=== PATIENT | male | born 1935 | race Caucasian/White ===

== ENCOUNTER 2017-09-16 07:14 | Day surgery (SDC) | payer MEDICARE, OTHER, SELFPAY | END 2017-09-16 12:01 | disposition home or self-care (01) | PROVIDERS: Family Provider Family Medicine; Visit Provider Internal Medicine | DX: I49.5 Sick sinus syndrome (principal); R00.1 Bradycardia, unspecified; Z45.02 Encounter for adjustment and management of automatic implantable cardiac defibrillator | CPT/HCPCS: 33208; 71010; 96374; 96375; C1785; C1898 ==

== ENCOUNTER → 2017-10-21 08:38 | Outpatient (POV) | payer MEDICARE, OTHER, SELFPAY | PROVIDERS: Family Provider Family Medicine; PCP Family Medicine; Visit Provider Physician Assistant | DX: Z00.00 Encounter for general adult medical examination without abnormal findings (principal) ==

== ENCOUNTER → 2017-12-23 10:08 | Outpatient (POV) | payer MEDICARE, OTHER, SELFPAY | PROVIDERS: Visit Provider Physician Assistant | DX: Z00.00 Encounter for general adult medical examination without abnormal findings (principal) ==

== ENCOUNTER → 2018-01-24 09:42 | Outpatient (CLI) | payer MEDICARE, OTHER, SELFPAY ==
--- NOTE | 2018-01-24 09:49 | XR_ITS ---
XR chest 2V COMPARISON: PA and lateral chest 24 January 1998 HISTORY: Known COPD TECHNIQUE: PA and lateral chest FINDINGS: The lung boston are well expanded and appear clear of infiltrate. Cardiac size is normal and the vascularity is normal and is no pleural fluid. There is a cardiac pacemaker with dual chamber electrodes both in good position. There are calcified right hilar nodes and a calcite granuloma right midlung field. IMPRESSION: Old granulomatous disease, no acute chest pathology noted
== END ==
PROVIDERS: PCP Nurse Practitioner Family; Visit Provider Nurse Practitioner Family
DX: J18.1 Lobar pneumonia, unspecified organism (principal); J44.0 Chronic obstructive pulmonary disease with (acute) lower respiratory infection
CPT/HCPCS: 71046

== ENCOUNTER → 2018-07-08 14:37 | Outpatient (POV) | payer MEDICARE, OTHER, SELFPAY | PROVIDERS: Visit Provider Dermatology | DX: Z00.00 Encounter for general adult medical examination without abnormal findings (principal) ==

== ENCOUNTER → 2018-07-29 12:43 | Outpatient (POV) | payer MEDICARE, OTHER, SELFPAY | PROVIDERS: Family Provider Family Medicine; PCP Family Medicine; Visit Provider Internal Medicine | DX: Z00.00 Encounter for general adult medical examination without abnormal findings (principal) ==

== ENCOUNTER → 2018-08-05 12:50 | Outpatient (POV) | payer MEDICARE, OTHER, SELFPAY | PROVIDERS: Visit Provider Dermatology | DX: Z00.00 Encounter for general adult medical examination without abnormal findings (principal) ==

== ENCOUNTER → 2018-08-27 08:35 | Outpatient (CLI) | payer MEDICARE, OTHER, SELFPAY ==
--- NOTE | 2018-08-27 08:36 | CI_ITS ---
Cerebrovascular Exam Indications: Follow-up carotid 433.10. 780.2 Syncope and collapse. IMPRESSIONS 1. Theright vertebral artery is patent with normal antegrade flow. 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 2. Study suggests less than 20% stenosis involving the right internal carotid artery. No change from the study of 30-Mar-2014. 3. Study suggests less than 20% stenosis involving the left internal carotid artery. No change from the study of 30-Mar-2014. Carotid duplex study. Complete study and Doppler flow study including spectral analysis, color and arriaza scale imaging. Height: Height: 167.6cm. Height: 66in. Weight: Weight: 83.9kg. Weight: 184.6lb. Body mass index: BMI: 29.9kg/m^2. Body surface area: BSA: 2m^2. Location: Vascular laboratory. Patient status: Outpatient. Tables: Arterial flow: + +--------+--------+ Location V sys V ed + +--------+--------+ Right CCA - proximal 77cm/s 14.9cm/s + +--------+--------+ Right CCA - distal 80.1cm/s 17.3cm/s + +--------+--------+ Right ECA 107cm/s 11.8cm/s + +--------+--------+ Right ICA - proximal 54.2cm/s 17.3cm/s + +--------+--------+ Right ICA - mid 66cm/s 19.6cm/s + +--------+--------+ Right ICA - distal 74.6cm/s 22cm/s + +--------+--------+ Right vertebral 51.9cm/s 11cm/s + +--------+--------+ Left CCA - proximal 76.2cm/s 13.4cm/s + +--------+--------+ Left CCA - distal 73.9cm/s 16.5cm/s + +--------+--------+ Left ECA 66.7cm/s 12.1cm/s + +--------+--------+ Left ICA - proximal 51.1cm/s 19.6cm/s + +--------+--------+ Left ICA - mid 58.1cm/s 16.5cm/s + +--------+--------+ Left ICA - distal 82.5cm/s 29.9cm/s + +--------+--------+ Velocity ratios: + + + + + + Right, V sys Right, V ed Left, V sys Left, V ed + + + + + + Max ICA/dist CCA 0.93 1.27 1.12 1.81 + + + + + + (Report amended ) Electronically signed by: Deyvi Wade [id number]
--- NOTE | 2018-08-27 09:39 | CT_ITS ---
CT chest wo con HISTORY: Follow-up pulmonary nodule, pulmonary nodule ITS.REASON: LUNG NODULE ORDERING PHYSICIAN: Robbi Magaña MD PATIENT AGE: 82 years COMPARISON: 12/18/2016 Technique: Axial images obtained with sagittal and coronal reformats. All CT scans at the facility use one or more dose reduction, viz: automated exposure control, ma/kV adjustment per patient size (including targeted exams where dose is matched to indication, i.e. head), or iterative reconstruction technique. FINDINGS: No mediastinal or hilar mass or adenopathy. There are a few scattered small mediastinal lymph nodes appear stable. There are coronary artery calcifications. Artifact is present from cardiac pacemaker device from the left subclavian approach. Normal heart size. No evidence of pericardial effusion. There are scattered fibrotic changes. There is a calcified granuloma in the right upper lobe posteriorly. A stable 3 mm nodular opacity is present in the right apex laterally. There is hyperinflation with coarsening of the bronchovascular markings and mild bronchial thickening Increasing consolidation is present within the lingula laterally and superiorly. This area has a triangular shape measuring 2.8 x 3 cm previously 1.8 x 2 cm. A post obstructive process is a consideration. No central obstructing lesions are however evident. Bronchoscopy may be of further value. Calcified gallstone is noted. There is mild ectasia of the upper abdominal aorta at 2.6 cm IMPRESSION: 1. Increasing consolidation/volume loss of the lingula. Bronchoscopy may be of further value. 2. Hyperinflation with coarsening of the bronchovascular markings. Does patient have a history of smoking?
[2018-08-27 10:00] VITALS: PULSE 68; PULSE 70
[2018-08-27 10:40] VITALS: BP 130/75; BP 150/78; PULSE 70; PULSE 98; RESP 18; RESP 24; O2SAT 93; O2SAT 95
== END ==
PROVIDERS: PCP Family Medicine; Referring Provider Internal Medicine; Visit Provider Internal Medicine
DX: I65.23 Occlusion and stenosis of bilateral carotid arteries (principal); J45.909 Unspecified asthma, uncomplicated; R06.02 Shortness of breath; R91.1 Solitary pulmonary nodule
CPT/HCPCS: 71250; 93880; 94060; 94618; 94640; 94726; 94729

== ENCOUNTER → 2018-11-04 09:32 | Outpatient (POV) | payer MEDICARE, OTHER, SELFPAY | PROVIDERS: Visit Provider Internal Medicine | DX: Z00.00 Encounter for general adult medical examination without abnormal findings (principal) ==

== ENCOUNTER → 2018-12-02 15:28 | Outpatient (POV) | payer MEDICARE, OTHER, SELFPAY | PROVIDERS: Visit Provider Dermatology | DX: Z00.00 Encounter for general adult medical examination without abnormal findings (principal) ==

== ENCOUNTER → 2019-02-02 18:42 | Outpatient (CLI) | payer MEDICARE, OTHER, SELFPAY | PROVIDERS: Visit Provider Podiatrist | DX: L60.0 Ingrowing nail (principal) | CPT/HCPCS: 87102; 87206; 87220 ==

== ENCOUNTER → 2019-04-28 09:04 | Outpatient (POV) | payer MEDICARE, OTHER, SELFPAY | PROVIDERS: Visit Provider Internal Medicine | DX: Z00.00 Encounter for general adult medical examination without abnormal findings (principal) ==

== ENCOUNTER → 2019-07-21 14:41 | Outpatient (POV) | payer MEDICARE, OTHER, SELFPAY | PROVIDERS: Visit Provider Dermatology | DX: Z00.00 Encounter for general adult medical examination without abnormal findings (principal) ==

== ENCOUNTER → 2020-03-22 12:50 | Outpatient (POV) | payer MEDICARE, OTHER, SELFPAY | PROVIDERS: PCP Family Medicine; Visit Provider Physician Assistant | DX: Z00.00 Encounter for general adult medical examination without abnormal findings (principal) ==

== ENCOUNTER → 2020-05-19 07:47 | Outpatient (CLI) | payer MEDICARE, OTHER, SELFPAY ==
[2020-05-19 09:06] LABS: Coronavirus 19 IgG Antibody Negative (Negative); Coronavirus 19 IgM Antibody Negative (Negative)
== END ==
PROVIDERS: Visit Provider Internal Medicine Gastroenterology
DX: Z01.818 Encounter for other preprocedural examination (principal); Z12.11 Encounter for screening for malignant neoplasm of colon
CPT/HCPCS: 36415; 86328

== ENCOUNTER 2020-05-20 07:48 | Day surgery (SDC) | payer MEDICARE, OTHER, SELFPAY ==
[2020-05-12 13:24] VITALS: BMI 26.6
[2020-05-20] VITALS (7 sets, daily range): BP systolic 89–195; BP diastolic 52–91; PULSE 70–85; RESP 16–18; TEMP 36.5–36.6; O2SAT 91–97
--- NOTE | 2020-05-20 09:25 | HMH.PROC ---
[facility] Procedure Note Procedure Note:: Colonoscopy Procedure Report: Colonoscopy with cold snare polypectomy Endoscopist: Valentin Andres II, MD Referring physician: Joelle La M.D. Date of Procedure: May 20, 2020 Equipment: Olympus 180 variable stiffness pediatric colonoscope Sedation: MAC sedation Indication: Mr. Pop is an 84-year-old gentleman with a personal history of adenomatous colon polyps and a family history of colon cancer. His mother had colon cancer at the age of 75. He had a colonoscopy in 2010 (Dr. Josef Carrillo) and had a single polyp removed. His last colonoscopy with mo in January 2017 revealed 7 colon polyps (tubular adenomas x7) which were removed. The patient also had extensive left-sided diverticulosis. He has been taking MiraLAX plus fiber/psyllium daily which helps. He does get some occasional right lower quadrant abdominal discomfort. He reports no rectal bleeding, change in bowel habits or weight loss. Procedure: Prior to the procedure, a history and physical exam was performed, and patient's medications and allergies were reviewed. The risks, benefits and alternatives of the sedation and procedure were discussed with the patient. All questions were answered and informed consent was obtained. The patient was brought to the procedure room. Patient identification and proposed procedure were verified by the physician and the nurse. The patient was placed in a left lateral decubitus position and the scope was passed under direct vision. Throughout the procedure, the patient's blood pressure, pulse, and oxygen saturations were monitored continuously. The colonoscopy was accomplished without difficulty. The patient tolerated the procedure well. Findings: On digital rectal examination there was normal rectal tone. There were no external hemorrhoids. The colonoscope was introduced through the anal canal to the rectum and advanced to the cecum. The ileocecal valve and appendiceal orifice were identified. The scope was advanced a short distance into the ileum which appeared grossly normal. The scope was then withdrawn into the colon. The cecum, ascending and transverse colon and mucosa were grossly normal. There were 3 diminutive polyps in the descending colon (2, 3 and 3 mm) and one polyp in the sigmoid colon (4 mm) which were removed via cold snare polypectomy. There were extensive scattered diverticuli throughout the descending and sigmoid colon (LEFT colon). The rectum itself was normal. Upon retroflexion within the rectum there were grade 1-2 internal hemorrhoids. The preparation was excellent throughout with [place] Preparation Score of 9. The cecal time was 12 minutes. Impression: 1. Diminutive colonic polyps x4 2. Extensive left-sided diverticulosis 3. Grade 1-2 internal hemorrhoids Plan: The patient will not require any further preventive colonoscopy. I will discuss the findings with patient and family. I would encourage continuation of the fiber bowel regimen (MiraLAX plus psyllium fiber) on a long-term daily maintenance basis.
--- NOTE | 2020-05-20 09:43 | HMH.ANESCL ---
[facility] Anesthesia Checklist - Structural Data Admitted From: Home Planned Operative Procedure/s: colonoscopy Consent for Planned Operative Procedure(s) Verified: Yes - Airway Assessment C-Spine Mobility Assessed: Yes TMJ Mobility Assessed: Yes Dentition: Dentures-good fit - Neurological Assessment Level of Consciousness: Awake, Alert, Appropriate - Anesthesia Plan Anesthesia Risk discussed: Yes Anesthesia Plan: Verified ASA Class: III Anesthesia Type: MAC [facility] History I have reviewed the patient's past medical history: Yes Medical History: Reports:: Asthma, Cancer (skin), Coronary Artery Disease, Gastroesophageal Reflux Disease(GERD), Hiatal Hernia, Home Oxygen, Hyperlipidemia, Hypertension, Lung Disease Denies:: Diabetes Mellitus Type 1, Diabetes Mellitus Type 2, Internal Pacemaker, MRSA, Seizures *Have you ever received a pneumonia vaccine?: Yes *Have you received a flu vaccine this season?: Yes Other Medical History: Reports: Arthritis, Hypothyroidism, Thyroid Disease Anesthesia experience/problems:: none Laterality Cases: Left: Arthroscopy Knee Other Surgeries: Yes: Cardiac Catheterization, Cardiac Surgery, Colonoscopy, Hernia Repair, Other ([facility]-no stents, Eye Lid Sx). No: Pacemaker Amputation: No Fractures: No - *Social History Last grade of school completed: High school graduate Smoking Status: Former smoker Tobacco Type: cigarettes # Packs/Day (cigarettes): 1 Alcohol Intake: never Alcohol Intake Frequency:: other Substance Use Type: denies use *Occupational Status:: retired Housing: house Household Members: spouse *Travel in the last 8 weeks: None Family Hx:: Coronary Artery Disease, Heart Attack
== END 2020-05-20 10:50 | disposition home or self-care (01) ==
LOC: OUTP 07:50
PROVIDERS: PCP Family Medicine; Visit Provider Internal Medicine Gastroenterology
PROC: 0DJD8ZZ Inspection of Lower Intestinal Tract, Via Natural or Artificial Opening Endoscopic (ICD-10-PCS; CPT 45378; principal; 2020-05-20 09:00)
DX: Z86.010 Personal history of colon polyps (principal); Z80.0 Family history of malignant neoplasm of digestive organs; Z87.19 Personal history of other diseases of the digestive system; Z12.11 Encounter for screening for malignant neoplasm of colon; K63.5 Polyp of colon; K57.30 Diverticulosis of large intestine without perforation or abscess without bleeding; K64.0 First degree hemorrhoids; J45.909 Unspecified asthma, uncomplicated; K21.9 Gastro-esophageal reflux disease without esophagitis; Z99.81 Dependence on supplemental oxygen; E78.5 Hyperlipidemia, unspecified; I10 Essential (primary) hypertension; Z85.828 Personal history of other malignant neoplasm of skin
CPT/HCPCS: 45385; 88305

== ENCOUNTER → 2020-05-25 12:47 | Outpatient (CLI) | payer MEDICARE, OTHER, SELFPAY ==
[2020-05-25 13:30] VITALS: PULSE 78; PULSE 80
--- NOTE | 2020-05-25 13:55 | CT_ITS ---
PROCEDURE: CT CHEST WO CON CLINICAL INDICATION: Pulmonary NOdule PULMINARY NODULE SOA COMPARISON: CT CHESTWO CT chest wo con from 08/27/[address] CHEST WO CONTRAST from 10/24/2018 TECHNIQUE: Axial images obtained with sagittal and coronal reformats. All CT scans at the facility use one or more dose reduction, viz: automated exposure control, ma/kV adjustment per patient size (including targeted exams where dose is matched to indication, i.e. head), or iterative reconstruction technique. FINDINGS: HEART AND MEDIASTINAL STRUCTURES: Cardiac pacemaker device is present from the left subclavian approach. No mediastinal or hilar mass or adenopathy. Calcified nodes are present in the right hilum. There are coronary artery calcifications and aortic valve calcifications. LUNGS AND PLEURAL SPACES: COPD. Old granulomatous disease with scattered areas of scarring. Calcified granuloma is present in the right upper lobe. Small pneumatocele noted in the right lung base posteriorly unchanged. In the lingular segment of the left upper lobe there is a solid-appearing soft tissue mass which measures 2.4 by 1.4 by 2.2 cm. Overall, the nodule appears slightly more prominent compared to 10/24/2018 and there is some increasing spiculation compared to the exam of 10/24/2018. Bronchoscopy is suggested for further evaluation. There is chronic volume loss in the lingula. No new nodules are evident. BONY STRUCTURES: No acute bony abnormalities apparent. UPPER ABDOMEN: Unremarkable. ADDITIONAL FINDINGS: No other significant abnormalities. IMPRESSION: Suspicious nodule within the lingula at 2.4 x 1.4 cm which appears slightly larger and slightly more voluminous compared to 10/24/2018 with some spiculation along its borders. Neoplasm is considered and bronchoscopy is suggested for further evaluation. Dictated by: Deyvi Wade MD 05/26/2020 11:35 Deyvi Wade MD in [place] 05/26/2020 11:35
== END ==
PROVIDERS: PCP Family Medicine; Visit Provider Internal Medicine Pulmonary Disease
DX: R91.1 Solitary pulmonary nodule (principal)
CPT/HCPCS: 71250; 94060; 94640; 94726; 94729

== ENCOUNTER → 2021-01-31 14:28 | Outpatient (POV) | payer MEDICARE, OTHER, SELFPAY | PROVIDERS: Visit Provider Dermatology | DX: Z00.00 Encounter for general adult medical examination without abnormal findings (principal) ==

== ENCOUNTER → 2021-02-01 09:57 | Outpatient (CLI) | payer MEDICARE, OTHER, SELFPAY ==
--- NOTE | 2021-02-01 10:02 | CA_ITS ---
APPROVED REPORT EXAM: Comprehensive 2D, Doppler, and color-flow Echocardiogram Manager Quality Systems: Vee Pulliam RVT Ht: 5 ft 6 in Wt: 193lbs BSA: 1.97 BP: 152/84 mmHg Indications: SOA,LUNG CA RECEIVING RADIATION,CAD,PACER,GERD,HOME O2,HLD,HTN 2D Dimensions LVOT 1.96 cm (M/F) 1.5-2.5 LA Volume 25.90 mL LA Volume Index 13.14 mL/m2 (M/F) 16-34 M-Mode Dimensions RVDd 2.82 cm (0.9-2.6) LA Diam 3.83 cm (1.9-4.0) LVDd 4.65 cm (3.5-5.7) Ao Diam 3.54 cm (2.0-3.7) LVDs 2.93 cm (3.5-5.7) IVSd 0.85 cm (0.6-1.1) PWd 0.66 cm (0.6-1.1) EF (Teich) 66.90% FS 37.00% EDV (Teich) 99.80 mL TAPSE 1.66 (<1.7) ESV (Teich) 33.00 mL LV Diastology E Decel Time 273.00 (160-240 msec) E/A Ratio 0.6 MED E' 5.50 (< 7 cm/sec) E'/MED E' Ratio 11.29 (>14) LAT E' 6.50 (<10 cm/sec) E/LAT E' Ratio 9.55 (>14) Aortic Valve AI PHT 725.00 ms Mitral Valve MV E Max Shon. 62.00 (40-130 cm/s) MV A Velocity 104.00 (40-130 cm/s) E/A Ratio 0.60 MV Decel. Time 273.00 (160-240 ms) MV PHT 80.00 ms Pulmonary Valve PV Peak Velocity 84.00 (50-150 cm/s) Tricuspid Valve TR P. Velocity 230.00 cm/s RAP Estimate 10.00 mmHg RVSP 31.20 mmHg Left Ventricle Left atrium is mildly enlarged, left ventricle is normal size, mild concentric left ventricular hypertrophy, visually estimated ejection fraction 55% with no regional wall motion abnormality, grade 1 diastolic dysfunction seen without tissue Doppler evidence of raise left atrial pressure. Right Ventricle Right atrium and right ventricle are mildly enlarged with normal contractility, pacemaker leads in the right atrium and right ventricle. Aortic Valve Aortic valve is minimally thickened and fibrosed, there is no aortic stenosis or aortic insufficiency. Mitral Valve Mitral valve is grossly normal, there is trace mitral regurgitation. Tricuspid Valve Tricuspid grossly normal, there is trace tricuspid regurgitation, tricuspid regurgitation jet velocity is inadequate for calculation of the right ventricular systolic pressure. Pulmonic Valve Pulmonic valve is poorly visualized. Great Vessels Aortic root is normal size. Pericardium No significant pericardial effusion noted. Conclusion 1. Mild biatrial enlargement, normal left ventricular size, mild concentric left ventricular hypertrophy, visually estimated ejection fraction 55% with no regional wall motion abnormality, grade 1 diastolic dysfunction seen without tissue Doppler evidence of raise left atrial pressure. 2. Mildly enlarged right ventricle with normal contractility. 3. Trace mitral and tricuspid regurgitation. 4. No significant pericardial effusion noted. Electronically signed by : Duke Doe, 02/02/2021 15:02:03
== END ==
PROVIDERS: PCP Family Medicine; Visit Provider Nurse Practitioner Family
DX: E78.2 Mixed hyperlipidemia (principal); I10 Essential (primary) hypertension; I25.10 Atherosclerotic heart disease of native coronary artery without angina pectoris; R06.00 Dyspnea, unspecified; Z95.0 Presence of cardiac pacemaker
CPT/HCPCS: 93306

== ENCOUNTER → 2021-06-06 10:12 | Outpatient (POV) | payer MEDICARE, OTHER, SELFPAY | PROVIDERS: Visit Provider Dermatology | DX: Z00.00 Encounter for general adult medical examination without abnormal findings (principal) ==

== ENCOUNTER 2021-12-19 12:46 | Emergency (ER) | payer MEDICARE, OTHER, SELFPAY ==
[2021-12-19] VITALS (10 sets, daily range): BP systolic 104–178; BP diastolic 64–84; PULSE 70–77; RESP 16–22; TEMP 36.7–36.8; O2SAT 93–100; BMI 31.4
--- NOTE | 2021-12-19 12:36 | ECG_ITS ---
APPROVED REPORT Exam: Resting ECG HR:69 bpm ECG Measurements Heart Rate 69 AXES AK 208 P 161 QRSd 84 QRS 24 QT 379 T 87 QTc 399 Conclusion ELECTRONIC ATRIAL PACEMAKER ABNORMAL RHYTHM ECG UNCONFIRMED REPORT Electronically signed by : Brandon Munoz MD 12/20/2021 18:03:27
--- NOTE | 2021-12-19 12:47 | XR_ITS ---
FINAL REPORT CLINICAL HISTORY: chest pain, sob, syncope FINDINGS: Two views of the chest were obtained. A left-sided pacemaker is present. The heart size and pulmonary vascularity are within normal limits. The mediastinum is normal. There is left lung base opacity favored to represent atelectasis over pneumonia. There is no pneumothorax. The bony thorax is intact. IMPRESSION: Left lung base opacity, favor atelectasis over pneumonia. Reviewed, Interpreted and Dictated by Alessandro Sumner III, MD Transcribed by Becki Estes Authenticated by Alessandro Sumner III, MD on 12/19/2021 01:41:07 PM [facility]
--- NOTE | 2021-12-19 12:56 | HMH.EDCP ---
ED Disposition Clinical Impression: Chest discomfort, Hypocalcemia, Hypomagnesemia, Renal insufficiency, Hyperkalemia Disposition: Home, Self-Care Condition on Discharge: Good Instructions: DI for Atypical Chest Pain, DI for Hypocalcemia, DI for Hypomagnesemia, Kidney Failure, Hyperkalemia Additional Instructions: follow up pcp 1-2 days and cardiology appt return here for worsening conditoon Referrals: Genesis La MD [Primary Care Provider] - - Critical Care Critical Care Time: No Attestation: On 12/19/21, the high probability of a clinically significant, sudden or life threatening deterioration of the following system(s) required my full and direct attention, intervention and personal management. The time I documented below is in addition to time spent performing reported procedures but includes the following listed in this critical care notation. Medical Decision Making - Medical Records Medical records reviewed: Yes: I reviewed the patient's medical records. - Justin Inquiry Pt receiving controlled substance: No Vital Signs: 12/19/21 12:58 12/19/21 13:00 12/19/21 13:30 Temperature 98.1 F Temperature Source Oral Pulse Rate 70 70 Pulse Rate [Left Radial] 70 Respiratory Rate 17 18 18 Blood Pressure 137/81 150/84 H Blood Pressure [Right Arm] 178/81 H Blood Pressure Mean 99 106 Blood Pressure Mean [Right Arm] 113 02 Sat by Pulse Oximetry 96 96 96 Oxygen Delivery Method Room Air 12/19/21 14:00 12/19/21 14:30 12/19/21 15:00 Temperature Temperature Source Pulse Rate 70 70 70 Pulse Rate [Left Radial] Respiratory Rate 20 16 22 Blood Pressure 120/74 104/64 L 112/73 Blood Pressure [Right Arm] Blood Pressure Mean 89 81 84 Blood Pressure Mean [Right Arm] 02 Sat by Pulse Oximetry 95 93 L 94 L Oxygen Delivery Method 12/19/21 15:30 12/19/21 16:00 12/19/21 16:30 Temperature Temperature Source Pulse Rate 70 70 70 Pulse Rate [Left Radial] Respiratory Rate 18 18 18 Blood Pressure 108/72 L 110/73 122/75 Blood Pressure [Right Arm] Blood Pressure Mean 85 81 88 Blood Pressure Mean [Right Arm] 02 Sat by Pulse Oximetry 95 96 96 Oxygen Delivery Method - Lab Data Lab Results 12/19/21 12:44: Magnesium 1.5 L 12/19/21 12:49: WBC 9.4, RBC 5.43, Hgb 16.5, Hct 51.7, MCV 95.2 H, MCH 30.4, MCHC 31.9, RDW 14.6, Plt Count 170, MPV 10.1, Neut % (Auto) 53.3, Lymph % (Auto) 37.7, [place] % (Auto) 6.0, Eos % (Auto) 1.7, Baso % (Auto) 1.2, Neut # (Auto) 5.0, Lymph # (Auto) 3.6, [place] # (Auto) 0.6, Eos # (Auto) 0.2, Baso # (Auto) 0.1 12/19/21 12:49: Sodium 140, Potassium 2.8 L*, Chloride 119 H, Carbon Dioxide 18 L, Anion Gap 5.8, BUN 12, Creatinine 0.90, Estimated Creat Clear 66, Estimated GFR 80, Est GFR ( Amer) 97, Glucose 96, Calcium 5.2 L*, Troponin I < 0.01 12/19/21 15:01: SARS-CoV-2 (PCR) Not detected, Influenza A Untype (PCR) Not detected, Influenza Type B (PCR) Not detected 12/19/21 15:23: Troponin I < 0.01 12/19/21 15:23: Magnesium 3.0 H D 12/19/21 15:23: Sodium 136, Potassium 5.2 H D, Chloride 107, Carbon Dioxide 24, Anion Gap 10.2, BUN 16 D, Creatinine 1.50 H D, Estimated Creat Clear 44, Estimated GFR 44 L, Est GFR ( Amer) 54 L D, Glucose 93, Calcium 7.9 L 12/19/21 17:58: Sodium 138, Potassium 5.2 H, Chloride 109 H, Carbon Dioxide 25, Anion Gap 9.2, BUN 16, Creatinine 1.50 H, Estimated Creat Clear 44, Estimated GFR 44 L, Est GFR ( Amer) 54 L, Glucose 100, Calcium 8.1 L Result diagrams: 12/19/21 12:49 12/19/21 17:58 Orders (Tests/Meds): ED MEDICATIONS Generic Name Dose Route Start Last Admin Trade Name Freq PRN Reason Stop Dose Admin Sodium Chloride 10 ml 12/19/21 12:47 Sodium Chloride 0.9% 10ml Flush Syringe IV 01/18/22 12:46 NEEDED PRN Maintain IV Site Discontinued Medications Generic Name Dose Route Start Last Admin Trade Name Freq PRN Reason Stop Dose Admin Aspirin 243 mg 12/19/21 12:48 12/19/21 13:29 A
[2021-12-19 12:58] LABS: Basophils # 0.1 K/mm3 (0-0.2); Basophils % 1.2 % (0.1-2.0); Eosinophils # 0.2 K/mm3 (0.0-0.4); Eosinophils % 1.7 % (0.1-12.0); Hematocrit 51.7 % (42.0-52.0); Hemoglobin 16.5 g/dL (14.1-18.0); Lymphocytes # 3.6 K/mm3 (0.7-4.5); Lymphocytes % 37.7 % (10-50); Mean Corpuscular HGB Conc 31.9 g/dL (31.8-35.4); Mean Corpuscular Hemoglobin 30.4 pg (27.0-31.2); Mean Corpuscular Volume 95.2 fl (80-94); Mean Platelet Volume 10.1 fl (7.4-10.4); Monocytes # 0.6 K/mm3 (0.1-1.0); Neutrophils % 53.3 % (37.0-80.0); Platelet Count 170 K/mm3 (142-424); Red Blood Count 5.43 M/mm3 (4.60-6.20); Red Cell Distribution Width 14.6 % (11.5-17.5); White Blood Count 9.4 K/mm3 (4.8-10.8)
[2021-12-19 13:06] LABS: Chloride 119 mmol/L (98-107); Sodium 140 mmol/L (136-145)
[2021-12-19 13:08] LABS: Potassium 2.8 mmoL/L (3.5-5.1)
--- NOTE | 2021-12-19 13:08 | PC.NURSE ---
K+ 2.8 per sujey in lab
[2021-12-19 13:09] LABS: Blood Urea Nitrogen 12 mg/dl (9-20); Creatinine Clearance Estimated 66 mL/min (50-200); Estimated Glomerular Filt Rate 80 ml/min (>60); GFR (African American) 97 ML/MIN (>60)
[2021-12-19 13:10] LABS: Anion Gap 5.8 mEq/L (5-15); Carbon Dioxide 18 mmol/L (22.0-30.0); Glucose 96 mg/dl (74-100)
[2021-12-19 13:25] LABS: Troponin I < 0.01 ng/ml (0.00-0.034)
[2021-12-19 13:26] LABS: Calcium 5.2 mg/dl (8.4-10.2)
--- NOTE | 2021-12-19 13:26 | PC.NURSE ---
notified ER pt calcium is 5.2
[2021-12-19 14:13] LABS: Magnesium 1.5 mg/dl (1.6-2.3)
--- NOTE | 2021-12-19 14:48 | PC.NURSE ---
TINO FROM [facility] HAS COME TO SEE PT AND THEY ADVISED IF 2ND TROP IS NEGATIVE SEND HOME THEY ARE SETTING HIM UP FOR OUTPATIENT STRESS AND WE SEE THEM ON SATURDAY
--- NOTE | 2021-12-19 14:51 | HMH.CNCARD ---
History of Present Illness Consult date: 12/19/21 Requesting physician: Sammy Jay Consult reason: chest pain Chief complaint: chest pain History of present illness: This is an 86-year-old white gentleman who presented to the emergency department with complaints of chest pain. He states he was sitting in the chair this morning when he had sudden onset of epigastric burning in the chest. He states that this did not radiate and was about an 8 out of 10 in intensity. He denied any associated symptoms initially. He states when he got up he felt really dizzy so he checked his blood pressure and his blood pressure was 180 systolic. He states that the chest pain went away but he remained dizzy so he decided to come to the emergency department. He still reports that his chest pain has resolved. He denies any shortness of breath or edema. He denies any fever, chills, nausea, vomiting, diarrhea, PND or orthopnea. He states his dizziness has resolved as well. [facility] History I have reviewed the patient's past medical history: Yes Medical History: Reports:: Asthma, Atherosclerotic Heart Disease, Cancer, Coronary Artery Disease, Gastroesophageal Reflux Disease(GERD), Hiatal Hernia, Home Oxygen, Hyperlipidemia, Hypertension, Lung Disease Denies:: Diabetes Mellitus Type 1, Diabetes Mellitus Type 2, Internal Pacemaker, MRSA, Seizures *Have you ever received a pneumonia vaccine?: Yes *Have you received a flu vaccine this season?: Yes Other Medical History: Reports: Arthritis, Hypothyroidism, Thyroid Disease Laterality Cases: Left: Arthroscopy Knee Other Surgeries: Yes: Cardiac Catheterization, Cardiac Surgery, Colonoscopy, Hernia Repair, Other ([facility]-no stents, Eye Lid Sx). No: Pacemaker Amputation: No Fractures: No - *Social History Smoking Status: Former smoker Tobacco Type: cigarettes # Packs/Day (cigarettes): 1 Alcohol Intake: never Alcohol Intake Frequency:: other Substance Use Type: denies use *Occupational Status:: retired Housing: house Household Members: spouse *Travel in the last 8 weeks: None Family Hx:: Coronary Artery Disease, Heart Attack Meds Home Medications Medication Instructions Recorded Confirmed Type aspirin 81 mg tablet,delayed 81 mg PO QDAY 11/04/17 11/02/21 History release atorvastatin 10 mg tablet 10 mg PO QDAY 11/04/17 11/02/21 History levothyroxine 50 mcg tablet 50 mcg PO QDAY tab 11/04/17 11/02/21 History chlordiazepoxide HCl 10 mg capsule 10 mg PO DAILY cap 02/02/19 11/02/21 History cholecalciferol (vitamin D3) 125 5,000 unit PO DAILY 02/02/19 11/02/21 History mcg (5,000 unit) capsule pantoprazole 40 mg tablet,delayed 40 mg PO DAILY tab 04/27/19 11/02/21 History release tamsulosin 0.4 mg capsule 0.4 mg PO DAILY 02/01/20 11/02/21 History albuterol sulfate 90 mcg/actuation 1 inh INHALATION QID PRN #8.5 g 01/11/21 11/02/21 Rx aerosol inhaler tiotropium bromide 2.5 2 inh INHALATION DAILY #4 g 01/11/21 11/02/21 Rx mcg/actuation mist for inhalation metoprolol succinate 50 mg 50 mg PO DAILY tab 04/24/21 11/02/21 History tablet,extended release 24 hr Allergies Allergy/AdvReac Type Severity Reaction Status Date / Time Sulfa (Sulfonamide Allergy Unknown Unknown Verified 11/02/21 13:46 Antibiotics) allergy reaction clindamycin AdvReac Intermediate stomach Verified 11/02/21 13:46 issues Exam Vital signs and Labs for Last 24 Hours: Temp Pulse Resp BP Pulse Ox 98.1 F 70 17 178/81 H 96 12/19/21 12:58 12/19/21 12:58 12/19/21 12:58 12/19/21 12:58 12/19/21 12:58 Laboratory Results - last 24 hr 12/19/21 12:44: Magnesium 1.5 L 12/19/21 12:49: WBC 9.4, RBC 5.43, Hgb 16.5, Hct 51.7, MCV 95.2 H, MCH 30.4, MCHC 31.9, RDW 14.6, Plt Count 170, MPV 10.1, Neut % (Auto) 53.3, Lymph % (Auto) 37.7, [place] % (Auto) 6.0, Eos % (Auto) 1.7, Baso % (Auto) 1.2, Neut # (Auto) 5.0, Lymph # (Auto) 3.6, [place] # (Auto) 0.6, Eos # (Auto) 0.2, Baso # (Auto) 0.1 12/19/21 12:49: Sodium
[2021-12-19 15:05] LABS: Coronavirus 19, PCR Not Detected (NotDetected); Influenza A, PCR Not Detected (NotDetected); Influenza B, PCR Not Detected (NotDetected)
--- NOTE | 2021-12-19 15:35 | PC.NURSE ---
spoke with josé luis in pharmacy r/t calcium gluconate order, states he is going to fix order for 50 mL bag, states they will also mix medication and send it down
[2021-12-19 15:38] LABS: Chloride 107 mmol/L (98-107); Potassium 5.2 mmoL/L (3.5-5.1); Sodium 136 mmol/L (136-145)
--- NOTE | 2021-12-19 15:38 | PC.NURSE ---
HUMBERTO RAE states pt is okay to eat
[2021-12-19 15:41] LABS: Anion Gap 10.2 mEq/L (5-15); Blood Urea Nitrogen 16 mg/dl (9-20); Calcium 7.9 mg/dl (8.4-10.2); Carbon Dioxide 24 mmol/L (22.0-30.0); Creatinine Clearance Estimated 44 mL/min (50-200); Estimated Glomerular Filt Rate 44 ml/min (>60); GFR (African American) 54 ML/MIN (>60); Glucose 93 mg/dl (74-100)
--- NOTE | 2021-12-19 16:29 | PC.NURSE ---
notified ER MD of repeat lab results, ER MD Gave verbal order for NS IVF bolus of 1L
[2021-12-19 16:35] LABS: Troponin I < 0.01 ng/ml (0.00-0.034)
--- NOTE | 2021-12-19 16:40 | INFXCTL.NOTE ---
ER states to repeat BMP at fluid bolus
[2021-12-19 18:12] LABS: Chloride 109 mmol/L (98-107); Sodium 138 mmol/L (136-145)
[2021-12-19 18:13] LABS: Potassium 5.2 mmoL/L (3.5-5.1)
[2021-12-19 18:15] LABS: Blood Urea Nitrogen 16 mg/dl (9-20); Creatinine Clearance Estimated 44 mL/min (50-200); Estimated Glomerular Filt Rate 44 ml/min (>60); GFR (African American) 54 ML/MIN (>60)
[2021-12-19 18:16] LABS: Anion Gap 9.2 mEq/L (5-15); Calcium 8.1 mg/dl (8.4-10.2); Carbon Dioxide 25 mmol/L (22.0-30.0); Glucose 100 mg/dl (74-100)
== END 2021-12-19 19:23 | disposition home or self-care (01) ==
PROVIDERS: Emergency Provider Emergency Medicine; PCP Family Medicine
DX: R07.9 Chest pain, unspecified (principal); E87.5 Hyperkalemia; E16.2 Hypoglycemia, unspecified; E83.51 Hypocalcemia; E83.42 Hypomagnesemia; Z20.822 Contact with and (suspected) exposure to COVID-19; I10 Essential (primary) hypertension; N19 Unspecified kidney failure; I25.10 Atherosclerotic heart disease of native coronary artery without angina pectoris; E78.5 Hyperlipidemia, unspecified; K21.9 Gastro-esophageal reflux disease without esophagitis; K44.9 Diaphragmatic hernia without obstruction or gangrene; E03.9 Hypothyroidism, unspecified; M19.90 Unspecified osteoarthritis, unspecified site; J45.909 Unspecified asthma, uncomplicated; Z79.51 Long term (current) use of inhaled steroids; Z79.52 Long term (current) use of systemic steroids; Z99.81 Dependence on supplemental oxygen; Z79.899 Other long term (current) drug therapy; Z88.1 Allergy status to other antibiotic agents; Z88.2 Allergy status to sulfonamides; Z88.3 Allergy status to other anti-infective agents; Z87.891 Personal history of nicotine dependence
CPT/HCPCS: 36415; 71046; 80048; 83735; 84484; 85025; 93005; 96361; 96365; 96366; 96367; 99285; C9803; U0003; U0005

== ENCOUNTER → 2022-01-11 07:48 | Outpatient (CLI) | payer MEDICARE, OTHER, SELFPAY ==
--- NOTE | 2022-01-11 08:05 | CA_ITS ---
APPROVED REPORT Exam: Pharmacologic Technologist: Kavita Kaur, Ht: 5 ft 6 in Wt: 199 lbs BSA: 2.00 m2 HR: 70 bpm BP: 142/79 mmHg Rhythm: NSR, 1st degree AVB Medical History Medical History: HTN, Hyperlipidemia Medications: Spiriva,,,,, Aspirin,,,,, Synthroid,,,,, Flomax,,,,, Pantoprazole,,,,, Metoprolol Succinate,,,,, Lipitor,,,,, Albuterol,,,,, Vit D12,,,,, CHlordiazapoxide,,,,, Cardiac Risk Factors: HTN, Hyperlipidemia Stress Test Details Test: LEXISCAN HR Resting HR: 70 bpm Max Heart Rate (APMHR): 134.684723 bpm Max HR Achieved: 83 bpm Target HR (85% APMHR): 113.954204 bpm % of APMHR: 61.94 Recovery HR: 76 bpm BP Resting BP: 142/79 mmHg Max BP: 147/76 mmHg Recovery BP: 144.0/74.0 mmHg ECG Resting ECG: NSR, 1st degree AVB Clinical Exercise duration: 04:00 min Highest Stage Achieved: Exercise capacity: 1.0 METs Stress ECG Conclusion During lexiscan pt experinced SOA. No CP noted. No arrhythmias noted. No significant ST changes. Unremarkable lexiscan stress. Myoview images reported separately. Test Summary REST . . . . . . . Sitting REST 17:42 . . 70 . 142/ 79 . . Stage 1 01:00 . . 76 . . . . Stage 2 01:00 . . 83 . 139/ 77 . . Stage 3 01:00 . . 80 . 143/ 74 . . Stage 4 01:00 . . 79 . 146/ 74 . Stop exercise at 04:00 RECOVERY 01:00 . . 75 . . . . RECOVERY 02:00 . . 76 . 144/ 74 . . RECOVERY 03:00 . . 75 . 144/ 74 . . RECOVERY 03:19 . . 75 . 147/ 76 . . Electronically signed by : Duke Doe MD 01/12/2022 16:03:44
--- NOTE | 2022-01-11 08:06 | NM_ITS ---
APPROVED REPORT Exam: Nuclear Stress Test Indication: HTN, HYPERLIPIDEMIA, FM HX, C.P., SOB, COPD, PACE MAKER Patient Location: Outpatient Stress Tech: Kavita Kaur CO Tech:Yessi Tariq GIOVANNA RT (R)(N)(M) Ht: 5 ft 6 in Wt: 197 lbs HR: 70 bpm BP: 142/79 mmHg BSA: 1.99 m2 BMI: 31.7 History: HTN, HYPERLIPIDEMIA, FM HX, C.P., SOB, COPD, PACE MAKER Procedure: Patient received a 0.4 mg of intravenous Lexiscan, resting heart rate 70 bpm, resting blood pressure 142/79 mmHg, with Lexiscan maximum heart rate achived was 82 bpm which is Less than 85 % of the maximum predicted heart rate and blood pressure was 139/77 mmHg. With Lexiscan, patient denied any complaint of chest pain. Electrocardiogram Resting electrocardiogram shows sinus rhythm, with Lexiscan there is less than 1.[address] segment depression noted from the baseline EKG. The EKG portion of the Lexiscan is nondiagnostic. Cardiac Stress and Resting SPECT Images: Cardiac Stress and Resting SPECT images were obtained using technetium 99m Myoview 31.0 mCi stress and 10.33 mCi at rest. Gated SPECT for analysis of segmental wall motion and calculation of the ejection fraction also done. Cardiac stress and resting SPECT images show uniform myocardial activity without segmental perfusion abnormality, computer derived ejection fraction is 65% with no regional wall motion abnormality, right ventricle is normal size and contractility. Conclusion: 1. The EKG portion of the Lexiscan Myoview is nondiagnostic. 2. No scintigraphic evidence of reversible ischemia seen, computer derived ejection fraction is 65% wall motion abnormality, right ventricle is normal size and contractility. 3. Normal Lexiscan Myoview study. Electronically signed by : Duke Doe MD 01/12/2022 16:07:33
== END ==
PROVIDERS: PCP Family Medicine; Visit Provider Physician Assistant
DX: R06.00 Dyspnea, unspecified (principal); R07.9 Chest pain, unspecified
CPT/HCPCS: 78452; 93017; A9502; J2785

== ENCOUNTER → 2022-02-28 08:51 | Outpatient (CLI) | payer MEDICARE, OTHER, SELFPAY ==
--- NOTE | 2022-02-28 09:02 | FL_ITS ---
FINAL REPORT CLINICAL HISTORY: dysphagia ft: 3:08 FINDINGS: Upper GI History: Difficulty swallowing. Technique: The patient ingested barium. Crystals were given for double contrast study. 26 spot films were obtained. Fluoroscopy time: 3 minutes 8 seconds. Findings: There is a small esophageal diverticulum midesophagus. There is a short segment stricture identified in the distal distal esophagus. Initially, a 13 mm barium tablet does not pass through this region. Esophageal dysmotility was demonstrated during the exam. Stomach empties appropriately. 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 IMPRESSION: Short segment stricture of the distal esophagus with probable small hiatal hernia. Endoscopic correlation is recommended. Images reviewed, interpreted and dictated by Dr. Ariza. Transcribed by Chriss Lynch PA-C. Reviewed, Interpreted and Dictated by She Ariza MD Transcribed by GUILLERMINA Shelton Authenticated by She Ariza MD on 03/01/2022 09:02:26 AM [facility]
== END ==
PROVIDERS: PCP Family Medicine; Visit Provider Family Medicine
DX: R13.19 Other dysphagia (principal)
CPT/HCPCS: 74246

== ENCOUNTER → 2022-03-30 07:52 | Outpatient (CLI) | payer MEDICARE, OTHER, SELFPAY ==
[2022-03-30 08:03] LABS: Coronavirus 19, PCR Not Detected (NotDetected); Influenza A, PCR Not Detected (NotDetected); Influenza B, PCR Not Detected (NotDetected)
== END ==
PROVIDERS: PCP Family Medicine; Visit Provider Internal Medicine Gastroenterology
DX: Z01.812 Encounter for preprocedural laboratory examination (principal); Z20.822 Contact with and (suspected) exposure to COVID-19; R13.10 Dysphagia, unspecified
CPT/HCPCS: C9803; U0003; U0005

== ENCOUNTER → 2022-05-08 08:22 | Outpatient (POV) | payer MEDICARE, OTHER, SELFPAY | PROVIDERS: Visit Provider Dermatology | DX: Z00.00 Encounter for general adult medical examination without abnormal findings (principal) ==

== ENCOUNTER → 2022-06-28 15:12 | Outpatient (POV) | payer MEDICARE, OTHER, SELFPAY | PROVIDERS: Visit Provider Dermatology | DX: Z00.00 Encounter for general adult medical examination without abnormal findings (principal) ==

== ENCOUNTER → 2022-07-03 09:55 | Outpatient (POV) | payer MEDICARE, OTHER, SELFPAY | PROVIDERS: Visit Provider Dermatology | DX: Z00.00 Encounter for general adult medical examination without abnormal findings (principal) ==

== ENCOUNTER → 2022-08-14 10:58 | Outpatient (POV) | payer MEDICARE, OTHER, SELFPAY | PROVIDERS: Visit Provider Dermatology | DX: Z00.00 Encounter for general adult medical examination without abnormal findings (principal) ==

== ENCOUNTER → 2022-09-04 10:48 | Outpatient (POV) | payer MEDICARE, OTHER, SELFPAY | PROVIDERS: Visit Provider Dermatology | DX: Z00.00 Encounter for general adult medical examination without abnormal findings (principal) ==

== ENCOUNTER → 2022-09-11 10:44 | Outpatient (POV) | payer MEDICARE, OTHER, SELFPAY | PROVIDERS: Visit Provider Dermatology | DX: Z00.00 Encounter for general adult medical examination without abnormal findings (principal) ==

== ENCOUNTER 2023-05-07 16:34 | Observation (INO) | payer MEDICARE, OTHER, SELFPAY ==
[2023-05-07] VITALS (7 sets, daily range): BP systolic 126–154; BP diastolic 72–80; PULSE 69–75; RESP 16–18; TEMP 36.6–36.9; O2SAT 94–97; BMI 29.0; BMI 29.3
--- NOTE | 2023-05-07 16:48 | CT_ITS ---
PROCEDURE INFORMATION: Exam: CT Abdomen And Pelvis Without Contrast Exam date and time: 05/07/2023 4:55 PM Age: 87 years old Clinical indication: Other: Hematuria; Abdominal pain; Flank; Right; Additional info: R flank pain, hematuria. HX of cancer TECHNIQUE: Imaging protocol: Computed tomography of the abdomen and pelvis without contrast. Radiation optimization: All CT scans at this facility use at least one of these dose optimization techniques: automated exposure control; mA and/or kV adjustment per patient size (includes targeted exams where dose is matched to clinical indication); or iterative reconstruction. REPORTING DATA: Count of CT and Cardiac NM exams in prior 12 months: This patient has received 0 known CTs and 0 known cardiac nuclear medicine studies in the 12 months prior to the current study. COMPARISON: RF FL UPPER GI W AIR 02/28/2022 9:15 AM FINDINGS: Liver: Nodular liver contour suggestive of cirrhosis. Gallbladder and bile ducts: Cholelithiasis with hazy pericholecystic fat stranding concerning for acute cholecystitis. No intra- or extra-hepatic biliary ductal dilatation. Pancreas: No pancreatic ductal dilation. Spleen: Scattered punctate calcifications in the spleen compatible with sequelae of prior granulomatous disease. No splenomegaly. Adrenal glands: Unremarkable. Kidneys and ureters: Simple renal cyst in the right kidney. Punctate (1-2 mm) non-obstructing stone in the lower right renal pelvis. No other renal or ureteral stones. Mild left hydroureteronephrosis to the level of the ureterovesical junction with no evidence of obstructing ureteral stone. Non-specific bilateral symmetric perinephric fat stranding. Stomach and bowel: Periampullary duodenal diverticulum. No evidence of duodenal diverticulitis. Colonic diverticulosis without evidence of acute diverticulitis. Appendix: No evidence of appendicitis. Intraperitoneal space: No free fluid. No pneumoperitoneum. Vasculature: Moderate amount of calcific arterial atherosclerosis throughout the aorta. No abdominal aortic aneurysm. Phleboliths noted in the pelvis. Lymph nodes: No pathologically enlarged lymph nodes by CT criteria. Urinary bladder: Markedly enlarged prostate with irregular nodular soft tissue density protruding into the base of the bladder. Reproductive: See Urinary bladder finding. Bones/joints: No evidence of acute osseous abnormality or suspicious bone lesions. Soft tissues: Post-operative changes of prior right inguinal hernia repair. IMPRESSION: 1. Markedly enlarged prostate with irregular nodular soft tissue density protruding into the base of the bladder. Findings are highly suspicious for malignancy. 2. Mild left hydroureteronephrosis to the level of the ureterovesical junction with no evidence of obstructing ureteral stone. Soft tissue mass at the base of the bladder is most likely obstructing the left ureter. 3. Cholelithiasis with hazy pericholecystic fat stranding concerning for acute cholecystitis. Please correlate with physical exam. 4. Nodular liver contour suggestive of cirrhosis. 5. Periampullary duodenal diverticulum. Findings can be asymptomatic or associated with obstructive pancreaticobiliary symptoms/disorders. 6. Colonic diverticulosis without evidence of acute diverticulitis. 7. Punctate (1-2 mm) non-obstructing stone in the lower right renal pelvis. COMMENTS: Consistent with the [employer]'s Incidental Findings Committee white paper (J Am Mary Radiol 2018): Any incidental renal lesion less than 1 cm or classified as too small to characterize, or any incidental cystic renal lesion characterized as simple-appearing, is likely benign. No follow-up imaging is recommended for these les
--- NOTE | 2023-05-07 16:57 | HMH.EDGENADL ---
Discharge Plan Disposition Patient Disposition: Home, Self-Care Condition: Good Clinical Impressions Clinical Impression: Bladder mass, Ureteral obstruction, left, Acute UTI Discharge ED Provider: [place] [facility]PI General Chief complaint: Urogenital-Male Stated complaint: blood in urine, sent by Dr. 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 This started today after he was leaving his radiation visit. He notes that it also ibarra at the end of urination. He denies any fevers, chills, nausea, vomiting, changes in bowel movements, or other concerns. He denies any significant feelings of urinary retention or hesitancy. He is not on anticoagulation. He does note a history of urinary tract infection, but this feels somewhat different. He also notes that he is having right flank pain radiating around to his groin. They sent a urinalysis at the clinic that was positive for nitrates, leukocyte esterase, and bacteria. Related Data Home Medications Medication Instructions Recorded Confirmed atorvastatin 10 mg tablet (Lipitor) 10 mg PO QDAY Cholesterol 11/04/17 03/01/23 levothyroxine 50 mcg tablet 50 mcg PO QDAY thyroid 11/04/17 03/01/23 (Synthroid) chlordiazepoxide HCl 10 mg capsule 10 mg PO DAILY . 02/02/19 03/01/23 cholecalciferol (vitamin D3) 125 5,000 unit PO DAILY Supplement 02/02/19 03/01/23 mcg (5,000 unit) capsule pantoprazole 40 mg tablet,delayed 40 mg PO DAILY GERD 04/27/19 03/01/23 release tamsulosin 0.4 mg capsule (Flomax) 0.4 mg PO DAILY BPH 02/01/20 03/01/23 trazodone 50 mg tablet 50 mg PO HS 03/01/23 03/01/23 Previous Rx's Medication Instructions Recorded albuterol sulfate 90 mcg/actuation 1 inh inhalation QID PRN shortness 01/11/21 aerosol inhaler of breath or wheezing #8.5 grams tiotropium bromide 2.5 2 inh inhalation DAILY #4 grams 01/11/21 mcg/actuation mist for inhalation (Spiriva Respimat) metoprolol succinate 50 mg 50 mg PO DAILY #90 tabs 01/21/23 tablet,extended release 24 hr Allergies Allergy/AdvReac Type Severity Reaction Status Date / Time Sulfa (Sulfonamide Allergy Unknown Unknown Verified 03/01/23 09:05 Antibiotics) allergy reaction clindamycin AdvReac Intermediate stomach Verified 03/01/23 09:05 issues [facility] Disclaimer: The information contained in this section may have been updated after the patient was seen, as this information can be updated by other users. Medical History CAD (coronary artery disease) Cardiac pacemaker in situ Dizziness Dyspnea HLD (hyperlipidemia) Hypertensive disorder Sick sinus syndrome Social History Smoking Status: Unknown if ever smoked alcohol intake: never substance use type: denies use current occupational status: retired Travel in the last 8 weeks: Inside the [place] household members: spouse housing: house caffeine: Yes ROS Obtained: Yes All systems reviewed & no additional complaints except as documented Physical Exam General General appearance: alert and in no apparent distress Head Head exam: atraumatic and normocephalic Eye Eye exam: Present normal appearance, PERRL and EOMI ENT ENT exam: Present normal exam, normal oropharynx and mucous membranes moist Neck Neck exam: Present normal inspection, full ROM and trachea midline; Absent tenderness Chest Chest inspection: Present normal inspection and symmetric chest wall rise; Absent tenderness Respiratory Respiratory exam: Present normal lung sounds bilaterally; Absent respiratory distress, wheezes or stridor Cardiovascular Cardiovascular exam: Present r
--- NOTE | 2023-05-07 17:02 | PC.NURSE ---
pt in CT
[2023-05-07 17:25] LABS: Microscopic, Urine URINE MICROSCOPIC (MICROSCOPIC)
[2023-05-07 17:41] LABS: Appearance,Urine SL CLOUDY (Clear); Basophils % 0.6 % (0.1-2.0); Bilirubin,Urine Negative (Negative); Blood, Urine 3+ (Negative); Chloride 102 mmol/L (98-107); Color,Urine RED (Yellow); Eosinophils # 0.1 K/mm3 (0.0-0.4); Eosinophils % 0.9 % (0.1-12.0); Glucose,Urine (UA) TRACE (Negative); Hematocrit 52.4 % (42.0-52.0); Hemoglobin 16.2 g/dL (14.1-18.0); Ketones,Urine TRACE (Negative); Leukocyte Esterase,Urine 1+ (Negative); Lymphocytes # 1.9 K/mm3 (0.7-4.5); Lymphocytes % 25.7 % (10-50); Mean Corpuscular HGB Conc 30.9 g/dL (31.8-35.4); Mean Corpuscular Hemoglobin 29.2 pg (27.0-31.2); Mean Corpuscular Volume 94.4 fl (80-94); Mean Platelet Volume 7.9 fl (7.4-10.4); Monocytes # 0.6 K/mm3 (0.1-1.0); Monocytes % 8.6 % (1.7-9.3); Neutrophils # 4.7 K/mm3 (1.8-7.8); Neutrophils % 64.2 % (37.0-80.0); Nitrate,Urine POSITIVE (Negative); PH,Urine 6.5 (5.0-8.5); Platelet Count 174 K/mm3 (142-424); Potassium 4.5 mmoL/L (3.5-5.1); Protein,Urine 3+ (Negative); Red Blood Count 5.55 M/mm3 (4.60-6.20); Red Cell Distribution Width 14.7 % (11.5-17.5); Sodium 140 mmol/L (136-145); White Blood Count 7.3 K/mm3 (4.8-10.8)
[2023-05-07 17:44] LABS: Anion Gap 10.5 mEq/L (5-15); Blood Urea Nitrogen 16 mg/dl (9-20); Calcium 9.7 mg/dl (8.4-10.2); Carbon Dioxide 32 mmol/L (22.0-30.0); Creatinine Clearance Estimated 35 mL/min (50-200); Estimated Glomerular Filt Rate 38 ml/min (>60); GFR (African American) 46 ML/MIN (>60); Glucose 94 mg/dl (74-100)
[2023-05-07 17:48] LABS: Activated Partial Thrombo Time 27.7 seconds (22.8-30.6); INR 1.06 (0.9-1.1); Prothrombin Time 11.4 seconds (10.1-12.5)
[2023-05-07 18:05] LABS: Bacteria,Urine Trace /lpf; RBC,Urine 50-100 #/hpf (0-3); Squamous Epithelial Cell,Urine Occasional #/hpf (0-5)
--- NOTE | 2023-05-07 18:13 | PC.NURSE ---
Contacting [facility] for a urology consult/possible transfer. Images powershared to [facility].
--- NOTE | 2023-05-07 18:36 | PC.NURSE ---
Dr. Gardner spoke with Dr. Chávez (urology) at . Spoke with Dr. Chowdhury in transfer center stated will have to list pt on waiting list, [facility] on divert at this time and unable to override divert at this time. Dr. Gardner states will contact hospitalist Dr. Gardner has updated pt and family on POC
--- NOTE | 2023-05-07 19:13 | PC.NURSE ---
shift change report given to kacirn
--- NOTE | 2023-05-07 19:30 | PC.NURSE ---
LALITO CALLING [facility] FOR POSSIBLE TRANSFER, HOSPITALIST AT [facility] REFUSED ADMISSION
--- NOTE | 2023-05-07 19:32 | PC.NURSE ---
UPDATED PT THAT WE ARE CALLING OTHER FACILITY THAT HAS A UROLOGIST
--- NOTE | 2023-05-07 19:33 | PC.NURSE ---
PT SETTING AT [facility] NOTHING NEEDED, SON IN LAW AT [facility]
--- NOTE | 2023-05-07 19:38 | PC.NURSE ---
waiting for at this time
--- NOTE | 2023-05-07 19:44 | PC.NURSE ---
o/p with at this time from [facility]
--- NOTE | 2023-05-07 19:47 | PC.NURSE ---
will not be accepting patient at this time.
--- NOTE | 2023-05-07 19:51 | PC.NURSE ---
Spoke with hospitalist about admit orders being pulled. Pt on wait list at where all care is established and followed. awaiting continuance of care orders.
--- NOTE | 2023-05-07 20:18 | EXP.HP ---
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 Patient was having radiation therapy today was sent to the ER concerning of urinary burning sensation. At ER theron hematuria was present. Admitted for further treatment and management. [facility] Disclaimer: The information contained in this section may have been updated after the patient was seen, as this information can be updated by other users. Medical History (Updated 05/07/23 @ 21:17 by Anatoly Brunson APRN) CAD (coronary artery disease) Cardiac pacemaker in situ Dizziness Dyspnea HLD (hyperlipidemia) Hypertensive disorder Liver cancer Melanoma Sick sinus syndrome Family History (Updated 05/07/23 @ 21:10 by Astrid Pascual RN) Brother Lung cancer Family history of myocardial infarction Sister Lung cancer Mother Colon cancer Social History (Updated 05/07/23 @ 21:10 by Astrid Pascual RN) Smoking Status: Former smoker years smoked: 40 alcohol intake: never substance use type: denies use current occupational status: retired Travel in the last 8 weeks: [place] the [place] household members: spouse housing: house caffeine: Yes do you feel safe at home: Yes victim of physical abuse: No victim of emotional abuse: No victim of sexual abuse: No Review of Systems Review of Systems Review of systems:: pertinent systems reviewed and negative unless documented below Meds Home Medications and Allergies Home Medications Medication Instructions Recorded Confirmed Type atorvastatin 10 mg tablet (Lipitor) 10 mg PO HS Cholesterol 11/04/17 05/08/23 History levothyroxine 50 mcg tablet 50 mcg PO DAILY thyroid 11/04/17 05/08/23 History (Synthroid) chlordiazepoxide HCl 10 mg capsule 10 mg PO DAILY Anxiety 02/02/19 05/08/23 History cholecalciferol (vitamin D3) 125 5,000 unit PO HS Supplement 02/02/19 05/08/23 History mcg (5,000 unit) capsule pantoprazole 40 mg tablet,delayed 40 mg PO DAILY Acid Reflux 04/27/19 05/08/23 History release tamsulosin 0.4 mg capsule (Flomax) 0.4 mg PO HS Prostate 02/01/20 05/08/23 History albuterol sulfate 90 mcg/actuation 1 inh inhalation QID PRN shortness 01/11/21 05/07/23 Rx aerosol inhaler of breath or wheezing #8.5 grams trazodone 50 mg tablet 50 mg PO HS Sleep 03/01/23 05/08/23 History metoprolol succinate 50 mg 50 mg PO DAILY High Blood Pressure 05/07/23 05/08/23 History tablet,extended release 24 hr tiotropium 2.5 mcg-olodaterol 2.5 2 puff inhalation DAILY Copd 05/08/23 05/08/23 History mcg/actuation mist for inhalation (Stiolto Respimat) New Prescriptions to Start Prescriptions: Allergies Allergy/AdvReac Type Severity Reaction Status Date / Time Sulfa (Sulfonamide Allergy Unknown Unknown Verified 03/01/23 09:05 Antibiotics) allergy reaction clindamycin AdvReac Intermediate stomach Verified 03/01/23 09:05 issues Exam Data for Last 24 hours Vital signs and Labs for Last 24 Hours: Temp Pulse Resp BP Pulse Ox O2 Del Method 97.8 F 75 16 145/73 H 95 Room Air 05/07/23 16:36 05/07/23 19:12 05/07/23 17:44 05/07/23 19:12 05/07/23 19:12 05/07/23 19:12 Laboratory Results - last 24 hr 05/07/23 17:10: WBC 7.3, RBC 5.55, Hgb 16.2, Hct 52.4 H, MCV 94.4 H, MCH 29.2, MCHC 30.9 L, RDW 14.7, Plt Count 174, MPV 7.9, Neut % (Auto) 64.2, Lymph % (Auto) 25.7, [place] % (Auto) 8.6, Eos % (Auto) 0.9, Baso % (Auto) 0.6, Neut # (Auto) 4.7, Lymph # (Auto) 1.9, [place] # (Auto) 0.6, Eos # (Auto) 0.1, Baso # (Auto) 0.0, PT 11.4, INR 1.06, APTT 27.7, Sodium 140, Potassium 4.5, Chloride 102, Carbon Dioxide 32 H, Anion Gap 10.5
--- NOTE | 2023-05-07 20:24 | PC.NURSE ---
Rounded on patient, no concerns voiced at this time.
--- NOTE | 2023-05-07 20:41 | PC.NURSE ---
pt arrived to floor at this time
[2023-05-08 04:00] VITALS: BP 128/76; PULSE 70; RESP 20; TEMP 36.7; O2SAT 97; BMI 29.3
--- NOTE | 2023-05-08 05:06 | PC.NURSE ---
Pt admitted this shift. Pt has had no complaints. Family stated on admission they will bring home meds this AM. Pt voided per urinal this shift. No hematuria noted.
[2023-05-08 06:41] LABS: Basophils % 0.6 % (0.1-2.0); Chloride 106 mmol/L (98-107); Eosinophils # 0.1 K/mm3 (0.0-0.4); Eosinophils % 1.9 % (0.1-12.0); Hematocrit 44.5 % (42.0-52.0); Lymphocytes # 1.5 K/mm3 (0.7-4.5); Lymphocytes % 21.9 % (10-50); Mean Corpuscular HGB Conc 31.5 g/dL (31.8-35.4); Mean Corpuscular Hemoglobin 29.4 pg (27.0-31.2); Mean Corpuscular Volume 93.2 fl (80-94); Mean Platelet Volume 8.1 fl (7.4-10.4); Monocytes # 0.8 K/mm3 (0.1-1.0); Monocytes % 11.7 % (1.7-9.3); Neutrophils # 4.5 K/mm3 (1.8-7.8); Neutrophils % 63.9 % (37.0-80.0); Platelet Count 150 K/mm3 (142-424); Potassium 4.7 mmoL/L (3.5-5.1); Red Blood Count 4.77 M/mm3 (4.60-6.20); Red Cell Distribution Width 14.7 % (11.5-17.5); Sodium 139 mmol/L (136-145)
[2023-05-08 06:44] LABS: Alanine Aminotransferase 23 U/L (12-78); Albumin Level 3.3 g/dl (3.5-5.0); Alkaline Phosphatase 81 U/L (38-126); Anion Gap 9.7 mEq/L (5-15); Aspartate Amino Transferase 34 U/L (17-59); Bilirubin,Total 0.7 mg/dl (0.2-1.3); Blood Urea Nitrogen 17 mg/dl (9-20); Calcium 8.8 mg/dl (8.4-10.2); Carbon Dioxide 28 mmol/L (22.0-30.0); Creatinine Clearance Estimated 44 mL/min (50-200); Estimated Glomerular Filt Rate 48 ml/min (>60); GFR (African American) 58 ML/MIN (>60); Globulin 3.3 g/dL (1.3-3.2); Glucose 95 mg/dl (74-100); Total Protein,Serum 6.6 g/dl (6.3-8.2)
[2023-05-08 06:45] LABS: Magnesium 2.2 mg/dl (1.6-2.3)
[2023-05-08 07:03] LABS: Hemoglobin 14.1 g/dL (14.1-18.0)
[2023-05-08 07:31] VITALS: BP 131/78; PULSE 70; RESP 18; TEMP 36.7; O2SAT 95
--- NOTE | 2023-05-08 08:12 | HMH.PHAINT1 ---
Pharmacy Intervention Comments: Patient's home medications were verified using a list made by the patient and patient's . -Micah perry, PharmD student
--- NOTE | 2023-05-08 09:33 | EXP.PN ---
Subjective *Date: 05/08/23 *Time: 09:33 Exam Data for Last 24 hours Vital signs and Labs for Last 24 Hours: Temp Pulse Resp BP Pulse Ox O2 Del Method 98.1 F 70 18 131/78 95 Room Air 05/08/23 07:31 05/08/23 07:31 05/08/23 07:31 05/08/23 07:31 05/08/23 07:31 05/08/23 07:31 Laboratory Results - last 24 hr 05/07/23 17:10: WBC 7.3, RBC 5.55, Hgb 16.2, Hct 52.4 H, MCV 94.4 H, MCH 29.2, MCHC 30.9 L, RDW 14.7, Plt Count 174, MPV 7.9, Neut % (Auto) 64.2, Lymph % (Auto) 25.7, [place] % (Auto) 8.6, Eos % (Auto) 0.9, Baso % (Auto) 0.6, Neut # (Auto) 4.7, Lymph # (Auto) 1.9, [place] # (Auto) 0.6, Eos # (Auto) 0.1, Baso # (Auto) 0.0, PT 11.4, INR 1.06, APTT 27.7, Sodium 140, Potassium 4.5, Chloride 102, Carbon Dioxide 32 H, Anion Gap 10.5, BUN 16, Creatinine 1.70 H, Estimated Creat Clear 35, Estimated GFR 38 L, Est GFR ( Amer) 46 L, Glucose 94, Calcium 9.7, Urine Color Red, Urine Appearance Sl cloudy, Urine pH 6.5, Ur Specific [place] 1.010, Urine Protein 3+, Urine Glucose (UA) Trace, Urine Ketones Trace, Urine Blood 3+, Urine Nitrate Positive, Urine Bilirubin Negative, Urine Urobilinogen 2.0, Ur Leukocyte Esterase 1+ A, Urine RBC 50-100, Urine WBC 3-5, Ur Squamous Epith Cells Occasional, Urine Bacteria Trace 05/08/23 06:03: WBC 7.0, RBC 4.77, Hgb 14.1 D, Hct 44.5, MCV 93.2, MCH 29.4, MCHC 31.5 L, RDW 14.7, Plt Count 150, MPV 8.1, Neut % (Auto) 63.9, Lymph % (Auto) 21.9, [place] % (Auto) 11.7 H, Eos % (Auto) 1.9, Baso % (Auto) 0.6, Neut # (Auto) 4.5, Lymph # (Auto) 1.5, [place] # (Auto) 0.8, Eos # (Auto) 0.1, Baso # (Auto) 0.0, Sodium 139, Potassium 4.7, Chloride 106, Carbon Dioxide 28, Anion Gap 9.7, BUN 17, Creatinine 1.40 H, Estimated Creat Clear 44, Estimated GFR 48 L, Est GFR ( Amer) 58 L D, Glucose 95, Calcium 8.8, Magnesium 2.2, Total Bilirubin 0.7, AST 34, ALT 23, Alkaline Phosphatase 81, Total Protein 6.6, Albumin 3.3 L, Globulin 3.3 H, Albumin/Globulin Ratio 1.0 L I & O for Last 24 hours: Intake & Output 05/05/23 05/06/23 05/07/23 05/08/23 23:59 23:59 23:59 23:59 Intake Total 1005 / 1005 Output Total 625 / 625 Balance 380 / 380 Weight 82.781 kg 82.781 kg
--- NOTE | 2023-05-08 11:30 | EXP.DC.SUM ---
General Admission date:: 05/07/23 Discharge date: 05/08/23 HPI HPI HPI: This patient is an 87-year-old male who has a history of lung cancer metastatic to the liver, currently undergoing radiation therapy, hypertension, CAD, hyperlipidemia, pacemaker in situ presenting to the emergency department for evaluation with concern for hematuria. Patient was having radiation therapy today was sent to the ER concerning of urinary burning sensation. At ER theron hematuria was present. Admitted for further treatment and management. Hospital Course Hospital Course Hospital Course: The patient did well overnight. His hematuria resolved. His creatinine level decreased from 1.7 to 1.4 which is within his baseline range. On the day of discharge he said that he only had one episode of discomfort with urination and UA on admission revealed 50-100 rbcs and 3-5 wbcs. I do not believe he has a UTI. He hasn't had fever, dysuria or suprapubic tenderness and no indication of cystitis on CT. abd/pel ct IMPRESSION: 1. Markedly enlarged prostate with irregular nodular soft tissue density protruding into the base of the bladder. Findings are highly suspicious for malignancy. 2. Mild left hydroureteronephrosis to the level of the ureterovesical junction with no evidence of obstructing ureteral stone. Soft tissue mass at the base of the bladder is most likely obstructing the left ureter. 3. Cholelithiasis with hazy pericholecystic fat stranding concerning for acute cholecystitis. Please correlate with physical exam. 4. Nodular liver contour suggestive of cirrhosis. 5. Periampullary duodenal diverticulum. Findings can be asymptomatic or associated with obstructive pancreaticobiliary symptoms/disorders. 6. Colonic diverticulosis without evidence of acute diverticulitis. 7. Punctate (1-2 mm) non-obstructing stone in the lower right renal pelvis. With regard to his mild left hydrourteronephrosis likely due to soft tissue mass at base of the bladder obstructing the left ureter, he will follow up with his Urologist, Dr. Alonzo, on 05/10 at 3pm. He did not have any abdominal pain or other symptom/sign concerning for acute cholecystitis. Exam Data for Last 24 hours Vital signs and Labs for Last 24 Hours: Temp Pulse Resp BP Pulse Ox O2 Del Method 98.1 F 70 18 131/78 95 Room Air 05/08/23 07:31 05/08/23 07:31 05/08/23 07:31 05/08/23 07:31 05/08/23 07:31 05/08/23 07:31 Laboratory Results - last 24 hr 05/07/23 17:10: WBC 7.3, RBC 5.55, Hgb 16.2, Hct 52.4 H, MCV 94.4 H, MCH 29.2, MCHC 30.9 L, RDW 14.7, Plt Count 174, MPV 7.9, Neut % (Auto) 64.2, Lymph % (Auto) 25.7, [place] % (Auto) 8.6, Eos % (Auto) 0.9, Baso % (Auto) 0.6, Neut # (Auto) 4.7, Lymph # (Auto) 1.9, [place] # (Auto) 0.6, Eos # (Auto) 0.1, Baso # (Auto) 0.0, PT 11.4, INR 1.06, APTT 27.7, Sodium 140, Potassium 4.5, Chloride 102, Carbon Dioxide 32 H, Anion Gap 10.5, BUN 16, Creatinine 1.70 H, Estimated Creat Clear 35, Estimated GFR 38 L, Est GFR ( Amer) 46 L, Glucose 94, Calcium 9.7, Urine Color Red, Urine Appearance Sl cloudy, Urine pH 6.5, Ur Specific [place] 1.010, Urine Protein 3+, Urine Glucose (UA) Trace, Urine Ketones Trace, Urine Blood 3+, Urine Nitrate Positive, Urine Bilirubin Negative, Urine Urobilinogen 2.0, Ur Leukocyte Esterase 1+ A, Urine RBC 50-100, Urine WBC 3-5, Ur Squamous Epith Cells Occasional, Urine Bacteria Trace 05/08/23 06:03: WBC 7.0, RBC 4.77, Hgb 14.1 D, Hct 44.5, MCV 93.2, MCH 29.4, MCHC 31.5 L, RDW 14.7, Plt Count 150, MPV 8.1, Neut % (Auto) 63.9, Lymph % (Auto) 21.9, [place] % (Auto) 11.7 H, Eos % (Auto) 1.9, Baso % (Auto) 0.6, Neut # (Auto) 4.5, Lymph # (Auto) 1.5, [place] # (Auto) 0.8, Eos # (Auto) 0.1, Baso # (Auto) 0.0, Sodium 139, Potassium 4.7, Chloride 106, Carbon Dioxide 28, Anion Gap 9.7, BUN 17, Creatinine 1.40 H, Estimated Creat Clear 44, Estimated GFR 48 L, Est GFR ( Amer) 58 L D, Glucose 95, Calcium 8.8, Magnesium 2.2, [place]
--- NOTE | 2023-05-08 11:42 | HMH.PHAINT1 ---
Pharmacy Intervention Comments: Discharge medications discussed with patient. -No new medications Micah Cisneros, PharmD student
--- NOTE | 2023-05-09 13:18 | CARE MANAGER ---
Called and spoke with patient regarding recent discharge. He stated that he is doing well, was aware of f/u appt and had no questions or concerns at time of call.
== END 2023-05-08 12:21 | disposition home or self-care (01) ==
LOC: ER 18:00 → 2ND 19:31
PROVIDERS: Nurse Practitioner Family; Admitting Provider Internal Medicine; Emergency Provider Emergency Medicine; PCP Family Medicine; Visit Provider Internal Medicine
DX: R31.0 Gross hematuria (principal); N32.89 Other specified disorders of bladder; N13.1 Hydronephrosis with ureteral stricture, not elsewhere classified; C34.12 Malignant neoplasm of upper lobe, left bronchus or lung; E78.49 Other hyperlipidemia; I25.10 Atherosclerotic heart disease of native coronary artery without angina pectoris; Z95.0 Presence of cardiac pacemaker; I10 Essential (primary) hypertension; Z79.899 Other long term (current) drug therapy; C43.4 Malignant melanoma of scalp and neck; I49.5 Sick sinus syndrome; C78.7 Secondary malignant neoplasm of liver and intrahepatic bile duct; C78.01 Secondary malignant neoplasm of right lung
CPT/HCPCS: G0378; 36415; 74176; 80048; 80053; 81001; 83735; 85025; 85610; 85730; 87086; 99285; J0696

== ENCOUNTER 2023-08-07 12:04 | Outpatient (CLI) | payer MEDICARE, OTHER, SELFPAY ==
[2023-08-07 12:33] VITALS: BMI 28.5
--- NOTE | 2023-08-07 12:41 | PC.NURSE ---
Addendum entered by Karla Warren RN 08/07/23 15:38: guardant 360 Original Note: 1241-collected labs via venipuncture stick in right ac; collected [id number] labs and sent off.
[2023-08-07 13:03] LABS: Basophils % 0.4 % (0.1-2.0); Eosinophils # 0.1 K/mm3 (0.0-0.4); Eosinophils % 0.5 % (0.1-12.0); Hematocrit 45.2 % (42.0-52.0); Hemoglobin 15.1 g/dL (14.1-18.0); Lymphocytes # 1.7 K/mm3 (0.7-4.5); Lymphocytes % 15.7 % (10-50); Mean Corpuscular HGB Conc 33.5 g/dL (31.8-35.4); Mean Corpuscular Hemoglobin 30.9 pg (27.0-31.2); Mean Corpuscular Volume 92.4 fl (80-94); Mean Platelet Volume 7.8 fl (7.4-10.4); Monocytes # 0.9 K/mm3 (0.1-1.0); Monocytes % 8.4 % (1.7-9.3); Neutrophils % 75.1 % (37.0-80.0); Platelet Count 175 K/mm3 (142-424); Red Blood Count 4.89 M/mm3 (4.60-6.20); Red Cell Distribution Width 14.5 % (11.5-17.5); White Blood Count 10.6 K/mm3 (4.8-10.8)
[2023-08-07 13:07] LABS: Chloride 104 mmol/L (98-107); Sodium 140 mmol/L (136-145)
[2023-08-07 13:08] LABS: Potassium 4.7 mmoL/L (3.5-5.1)
[2023-08-07 13:10] LABS: Alanine Aminotransferase 64 U/L (12-78); Anion Gap 12.7 mEq/L (5-15); Aspartate Amino Transferase 77 U/L (17-59); Blood Urea Nitrogen 20 mg/dl (9-20); Carbon Dioxide 28 mmol/L (22.0-30.0); Creatinine Clearance Estimated 37 mL/min (50-200); Estimated Glomerular Filt Rate 41 ml/min (>60); GFR (African American) 50 ML/MIN (>60)
[2023-08-07 13:11] LABS: Albumin Level 4.3 g/dl (3.5-5.0); Alkaline Phosphatase 190 U/L (38-126); Bilirubin,Total 1.3 mg/dl (0.2-1.3); Calcium 9.1 mg/dl (8.4-10.2); Globulin 4.1 g/dL (1.3-3.2); Glucose 106 mg/dl (74-100); Total Protein,Serum 8.4 g/dl (6.3-8.2)
== END 2023-08-07 12:45 | disposition home or self-care (01) ==
LOC: LAB 12:06 → INF 12:16
PROVIDERS: PCP Family Medicine; Visit Provider Internal Medicine Medical Oncology
DX: Z85.820 Personal history of malignant melanoma of skin (principal)
CPT/HCPCS: 36415; 80053; 85025

== ENCOUNTER → 2023-08-12 07:48 | Outpatient (CLI) | payer MEDICARE, OTHER, SELFPAY ==
--- NOTE | 2023-08-12 07:53 | CT_ITS ---
FINAL REPORT TECHNIQUE: Thin section axial images were obtained from skull base to vertex without contrast. Coronal and sagittal reconstruction images were obtained from the axial data. Exam was performed using dose reduction technique. CLINICAL HISTORY: MELANOMA, HX LIVER METS RIGHT EYE VISUAL DISTURBANCE COMPARISON: None FINDINGS: There is age-appropriate atrophy. There is no mass effect or midline shift. There is no intracranial hemorrhage. There is no hydrocephalus. The basilar cisterns are preserved. The posterior fossa is without acute abnormality. The soft tissues are without acute abnormality. No acute osseous abnormality is identified. IMPRESSION: No acute intracranial abnormality. Age-appropriate atrophy. Reviewed, Interpreted and Dictated by She Ariza MD Transcribed by Nayla Cohen Authenticated and [facility]
== END ==
PROVIDERS: PCP Family Medicine; Visit Provider Internal Medicine Medical Oncology
DX: Z85.820 Personal history of malignant melanoma of skin (principal)
CPT/HCPCS: 70450

== ENCOUNTER 2023-08-26 09:56 | Outpatient (CLI) | payer MEDICARE, OTHER, SELFPAY ==
[2023-08-26 10:04] VITALS: BMI 28.5
[2023-08-26 10:25] LABS: Basophils # 0.1 K/mm3 (0-0.2); Basophils % 0.4 % (0.1-2.0); Eosinophils # 0.1 K/mm3 (0.0-0.4); Eosinophils % 0.9 % (0.1-12.0); Hematocrit 48.5 % (42.0-52.0); Hemoglobin 15.8 g/dL (14.1-18.0); Lymphocytes # 2.1 K/mm3 (0.7-4.5); Lymphocytes % 19.2 % (10-50); Mean Corpuscular HGB Conc 32.7 g/dL (31.8-35.4); Mean Corpuscular Hemoglobin 30.3 pg (27.0-31.2); Mean Corpuscular Volume 92.6 fl (80-94); Mean Platelet Volume 7.7 fl (7.4-10.4); Monocytes # 0.7 K/mm3 (0.1-1.0); Monocytes % 6.7 % (1.7-9.3); Neutrophils # 7.8 K/mm3 (1.8-7.8); Neutrophils % 72.7 % (37.0-80.0); Platelet Count 214 K/mm3 (142-424); Red Blood Count 5.23 M/mm3 (4.60-6.20); Red Cell Distribution Width 15.4 % (11.5-17.5); White Blood Count 10.7 K/mm3 (4.8-10.8)
[2023-08-26 10:42] LABS: Alanine Aminotransferase 72 U/L (12-78); Albumin Level 4.2 g/dl (3.5-5.0); Alkaline Phosphatase 254 U/L (38-126); Anion Gap 16.6 mEq/L (5-15); Aspartate Amino Transferase 103 U/L (17-59); Bilirubin,Total 1.5 mg/dl (0.2-1.3); Blood Urea Nitrogen 21 mg/dl (9-20); Calcium 10.1 mg/dl (8.4-10.2); Carbon Dioxide 26 mmol/L (22.0-30.0); Chloride 101 mmol/L (98-107); Creatinine Clearance Estimated 35 mL/min (50-200); Estimated Glomerular Filt Rate 38 ml/min (>60); GFR (African American) 46 ML/MIN (>60); Globulin 4.3 g/dL (1.3-3.2); Glucose 113 mg/dl (74-100); Potassium 4.6 mmoL/L (3.5-5.1); Sodium 139 mmol/L (136-145); Total Protein,Serum 8.5 g/dl (6.3-8.2)
[2023-08-26 11:12] LABS: Thyroid Stimulating Hormone 5.48 uIU/mL (0.465-4.68)
[2023-08-26 11:15] VITALS: BP 137/78; PULSE 74; RESP 18; TEMP 36.7; O2SAT 94
[2023-08-26 11:30] VITALS: BP 133/68; PULSE 72; RESP 18; O2SAT 94
[2023-08-26 11:45] VITALS: BP 134/75; PULSE 71
[2023-08-27 15:40] LABS: Adrenocorticotropic Hormone 11.5 pg/mL (7.2-63.3)
== END 2023-08-26 12:00 | disposition home or self-care (01) ==
LOC: INF 09:56
PROVIDERS: PCP Family Medicine; Visit Provider Internal Medicine Medical Oncology
DX: C34.90 Malignant neoplasm of unspecified part of unspecified bronchus or lung (principal); Z79.899 Other long term (current) drug therapy; C79.9 Secondary malignant neoplasm of unspecified site
CPT/HCPCS: 80053; 82024; 82533; 84443; 85025; 96413; J9271

== ENCOUNTER 2023-09-17 09:15 | Outpatient (CLI) | payer MEDICARE, OTHER, SELFPAY ==
[2023-09-17 09:21] VITALS: BMI 27.8
[2023-09-17 09:36] LABS: Basophils # 0.1 K/mm3 (0-0.2); Basophils % 0.7 % (0.1-2.0); Eosinophils # 0.1 K/mm3 (0.0-0.4); Eosinophils % 0.8 % (0.1-12.0); Hematocrit 46.2 % (42.0-52.0); Hemoglobin 15.2 g/dL (14.1-18.0); Lymphocytes # 2.2 K/mm3 (0.7-4.5); Lymphocytes % 25.4 % (10-50); Mean Corpuscular HGB Conc 32.8 g/dL (31.8-35.4); Mean Corpuscular Hemoglobin 29.7 pg (27.0-31.2); Mean Corpuscular Volume 90.6 fl (80-94); Mean Platelet Volume 8.5 fl (7.4-10.4); Monocytes # 0.8 K/mm3 (0.1-1.0); Monocytes % 8.9 % (1.7-9.3); Neutrophils # 5.6 K/mm3 (1.8-7.8); Neutrophils % 64.3 % (37.0-80.0); Platelet Count 238 K/mm3 (142-424); Red Cell Distribution Width 15.9 % (11.5-17.5); White Blood Count 8.7 K/mm3 (4.8-10.8)
[2023-09-17 09:53] LABS: Chloride 103 mmol/L (98-107)
[2023-09-17 09:54] LABS: Potassium 4.6 mmoL/L (3.5-5.1); Sodium 138 mmol/L (136-145)
[2023-09-17 09:56] LABS: Alanine Aminotransferase 69 U/L (12-78); Aspartate Amino Transferase 125 U/L (17-59); Blood Urea Nitrogen 22 mg/dl (9-20); Creatinine Clearance Estimated 36 mL/min (50-200); Estimated Glomerular Filt Rate 41 ml/min (>60); GFR (African American) 50 ML/MIN (>60)
[2023-09-17 09:57] LABS: Albumin Level 3.6 g/dl (3.5-5.0); Albumin/Globulin Ratio 0.9 (1.1-1.8); Alkaline Phosphatase 384 U/L (38-126); Anion Gap 12.6 mEq/L (5-15); Bilirubin,Total 1.8 mg/dl (0.2-1.3); Calcium 9.2 mg/dl (8.4-10.2); Carbon Dioxide 27 mmol/L (22.0-30.0); Globulin 4.2 g/dL (1.3-3.2); Glucose 94 mg/dl (74-100); Total Protein,Serum 7.8 g/dl (6.3-8.2)
[2023-09-17 11:45] VITALS: BP 117/60; PULSE 71; RESP 18; TEMP 36.2; O2SAT 94
[2023-09-17 12:30] VITALS: BP 135/70; PULSE 76; RESP 18
== END 2023-09-17 12:30 | disposition home or self-care (01) ==
LOC: INF 09:17
PROVIDERS: PCP Family Medicine; Visit Provider Internal Medicine Medical Oncology
DX: C43.39 Malignant melanoma of other parts of face (principal); Z51.11 Encounter for antineoplastic chemotherapy
CPT/HCPCS: 80053; 85025; 96413; J9271

== ENCOUNTER 2023-10-09 09:36 | Outpatient (CLI) | payer MEDICARE, OTHER, SELFPAY ==
[2023-10-09 09:45] VITALS: BMI 28.0
--- NOTE | 2023-10-09 09:55 | PC.NURSE ---
[id number]-[email or web address].mayra cardozo started right ac 20g iv;obtained blood return;collected labs;pt to md appointment and to return for possible treatment.pt left in wheelchair with spouse and family member; pt states he has been extremely weak and declining per spouse will notify mayra foley.
[2023-10-09 10:09] LABS: Basophils # 0.1 K/mm3 (0-0.2); Basophils % 0.6 % (0.1-2.0); Eosinophils % 0.5 % (0.1-12.0); Hematocrit 45.4 % (42.0-52.0); Hemoglobin 14.6 g/dL (14.1-18.0); Lymphocytes # 1.4 K/mm3 (0.7-4.5); Lymphocytes % 15.5 % (10-50); Mean Corpuscular HGB Conc 32.1 g/dL (31.8-35.4); Mean Corpuscular Hemoglobin 30.3 pg (27.0-31.2); Mean Corpuscular Volume 94.5 fl (80-94); Mean Platelet Volume 8.5 fl (7.4-10.4); Monocytes # 0.7 K/mm3 (0.1-1.0); Monocytes % 7.4 % (1.7-9.3); Neutrophils # 6.6 K/mm3 (1.8-7.8); Platelet Count 275 K/mm3 (142-424); Red Cell Distribution Width 17.4 % (11.5-17.5); White Blood Count 8.7 K/mm3 (4.8-10.8)
[2023-10-09 10:19] LABS: Alanine Aminotransferase 103 U/L (12-78); Albumin Level 3.1 g/dl (3.5-5.0); Albumin/Globulin Ratio 0.8 (1.1-1.8); Alkaline Phosphatase 648 U/L (38-126); Anion Gap 18.6 mEq/L (5-15); Aspartate Amino Transferase 181 U/L (17-59); Bilirubin,Total 3.5 mg/dl (0.2-1.3); Blood Urea Nitrogen 33 mg/dl (9-20); Calcium 9.1 mg/dl (8.4-10.2); Carbon Dioxide 21 mmol/L (22.0-30.0); Chloride 100 mmol/L (98-107); Creatinine Clearance Estimated 34 mL/min (50-200); Estimated Glomerular Filt Rate 38 ml/min (>60); GFR (African American) 46 ML/MIN (>60); Globulin 3.9 g/dL (1.3-3.2); Glucose 103 mg/dl (74-100); Potassium 4.6 mmoL/L (3.5-5.1); Sodium 135 mmol/L (136-145)
[2023-10-09 10:50] LABS: Thyroid Stimulating Hormone 6.72 uIU/mL (0.465-4.68)
[2023-10-10 13:11] LABS: Adrenocorticotropic Hormone 19.8 pg/mL (7.2-63.3)
== END 2023-10-09 11:00 | disposition home or self-care (01) ==
LOC: INF 09:38
PROVIDERS: PCP Family Medicine; Visit Provider Internal Medicine Medical Oncology
DX: C79.9 Secondary malignant neoplasm of unspecified site (principal); Z79.899 Other long term (current) drug therapy
CPT/HCPCS: 36415; 80053; 82024; 82533; 84443; 85025

== ENCOUNTER 2023-10-18 09:57 | Outpatient (CLI) | payer OTHER, SELFPAY ==
--- NOTE | 2023-10-18 10:04 | US_ITS ---
FINAL REPORT CLINICAL HISTORY: CHECK FOR FLUID COMPARISON: None FINDINGS: Limited sonographic images were obtained of the abdomen to evaluate for ascites. There is a moderate amount of ascites noted. There are multiple hepatic masses consistent with hepatic metastatic disease. IMPRESSION: Moderate amount of ascites. Hepatic metastatic disease. Reviewed, Interpreted and Dictated by Alessandro Sumner III, MD Transcribed by Ashia Toscano Authenticated and [facility]
--- NOTE | 2023-10-18 10:05 | US_ITS ---
FINAL REPORT CLINICAL HISTORY: ASCITES -- TIFFANIE SARMIENTO -- RT SIDE -- 4150 ML FINDINGS: ULTRASOUND-GUIDED PARACENTESIS HISTORY:Ascites ATTENDING PHYSICIAN: Dr. Sumner PHYSICIAN IT SECURITY PROJECT MANAGER: Tiffanie Lee PA-C FINDINGS: After informed consent was obtained and timeout procedure performed, fluid was localized in the right lower quadrant under ultrasound guidance and marked on the skin appropriately. The patient was then prepped and draped in the usual sterile fashion and the skin was anesthetized with 1% lidocaine. An ultrasound guided paracentesis was then performed using a Turkel needle. Approximately 4.15 liters of fluid was removed. No fluid was sent to lab. The patient tolerated the procedure well and there were no immediate complications. IMPRESSION: Ultrasound guided right lower quadrant paracentesis as discussed above. Films reviewed , interpreted and dictated by Dr. Sumner Transcribed by Tiffanie Lee PA-C. Reviewed, Interpreted and Dictated by Alessandro Sumner III, MD Transcribed by GUILLERMINA Prescott Authenticated and . [facility]
== END 2023-10-18 23:59 ==
LOC: RAD 09:58
PROVIDERS: PCP Family Medicine; Visit Provider Internal Medicine Medical Oncology
DX: R18.8 Other ascites (principal)
CPT/HCPCS: 49083; 76705